=== PATIENT | female | born 1945 | race African-American/Black ===

== ENCOUNTER 2017-06-27 14:33 | Emergency (ER) | payer BC, OTHER ==
[~2017-06-27] VITALS: Ht 157.5 cm; Wt 77.0 kg
[2017-06-27 14:52] VITALS: BP 138/64
== END 2017-06-27 19:42 | disposition left against medical advice (07) ==
LOC: ER 14:33
DX: M79.604 Pain in right leg (principal); Z53.21 Procedure and treatment not carried out due to patient leaving prior to being seen by health care provider